=== PATIENT | female | born 1990 | race Caucasian/White ===

== ENCOUNTER 2016-12-07 00:45 | Emergency (ER) | payer OTHER ==
[2016-12-07 01:38] LABS: BILIRUBIN NEGATIVE (NEGATIVE); BLOOD 2+ Ery/uL (NEGATIVE); CLARITY CLEAR (CLEAR); COLOR YELLOW (YELLOW); GLUCOSE (U) NORMAL (NORMAL); KETONE (U) NEGATIVE (NEGATIVE); LEUKOCYTES TRACE Leu/uL (NEGATIVE); NITRITE NEGATIVE (NEGATIVE); PROTEIN NEGATIVE (NEGATIVE); SPECIFIC GRAVITY 1.015 (1.001-1.030); UROBILINOGEN 0.2 mg/dL (0.2-1.0); pH 6.5 (5.0-9.0)
[2016-12-07 01:45] LABS: AMORPHOUS URATES CRYSTALS MODERATE
[2016-12-07 01:58] LABS: BASOPHIL 0.7 % (0-2); EOSINOPHIL 9.9 % (0-5); HCT 42.3 % (37.0-47.0); HGB 14.7 g/dl (12.5-16.0); LYMPHOCYTE 44.7 % (15-48); MCH 30.6 pg (25.0-31.0); MCHC 34.8 g/dL (32.0-36.0); MCV 87.9 fL (78.0-100.0); MPV 9.6 fL (6.0-9.5); NEUTROPHIL 37.7 % (41-80); PLT 223 K/uL (150-400); RBC 4.81 M/uL (4.20-5.40); RDW 12.4 % (11.5-14.0); WBC 5.7 K/uL (4.0-10.5)
[2016-12-07 02:16] LABS: ALBUMIN 4.1 g/dL (3.5-5.0); BILIRUBIN - TOTAL 0.2 mg/dL (0.1-1.0); CREATININE 0.7 mg/dL (0.5-1.0); POTASSIUM 3.9 mmol/L (3.5-5.1); TOTAL PROTEIN 7.1 g/dL (6.4-8.3)
== END 2016-12-07 03:22 | disposition home or self-care (01) ==
LOC: FER 00:45
PROVIDERS: Emergency Medicine
DX: N20.0 Calculus of kidney (principal); F17.210 Nicotine dependence, cigarettes, uncomplicated; Z87.442 Personal history of urinary calculi; Z87.42 Personal history of other diseases of the female genital tract; Z88.2 Allergy status to sulfonamides; Z88.5 Allergy status to narcotic agent; Z88.6 Allergy status to analgesic agent; Z91.040 Latex allergy status; Z90.49 Acquired absence of other specified parts of digestive tract; Z97.8 Presence of other specified devices
CPT/HCPCS: 36415; 80053; 81001; 85025; 87076; 87077; 87088; 87186; J1170; J2405

== ENCOUNTER 2016-12-12 05:39 | Emergency (ER) | payer OTHER ==
[2016-12-12 07:26] LABS: BASOPHIL 0.6 % (0-2); EOSINOPHIL 7.3 % (0-5); HCT 38.8 % (37.0-47.0); HGB 13.4 g/dl (12.5-16.0); LYMPHOCYTE 51.8 % (15-48); MCH 30.9 pg (25.0-31.0); MCHC 34.5 g/dL (32.0-36.0); MCV 89.4 fL (78.0-100.0); MONOCYTE 7.4 % (0-12); NEUTROPHIL 32.9 % (41-80); PLT 212 K/uL (150-400); RBC 4.34 M/uL (4.20-5.40); RDW 12.5 % (11.5-14.0); WBC 6.6 K/uL (4.0-10.5)
[2016-12-12 07:33] LABS: CREATININE 0.6 mg/dL (0.5-1.0); POTASSIUM 4.2 mmol/L (3.5-5.1)
== END 2016-12-12 08:01 | disposition home or self-care (01) ==
LOC: FER 05:39
PROVIDERS: Internal Medicine
DX: N39.0 Urinary tract infection, site not specified (principal); F17.210 Nicotine dependence, cigarettes, uncomplicated; Z88.5 Allergy status to narcotic agent; Z88.2 Allergy status to sulfonamides; Z88.6 Allergy status to analgesic agent; Z91.040 Latex allergy status
CPT/HCPCS: 36415; 80048; 85025; 96372; J1170; J2270; J2405

== ENCOUNTER 2016-12-18 18:53 | Emergency (ER) | payer OTHER ==
[2016-12-18 19:43] LABS: BILIRUBIN NEGATIVE (NEGATIVE); BLOOD 2+ Ery/uL (NEGATIVE); CLARITY CLEAR (CLEAR); COLOR YELLOW (YELLOW); GLUCOSE (U) NORMAL (NORMAL); KETONE (U) NEGATIVE (NEGATIVE); LEUKOCYTES 3+ Leu/uL (NEGATIVE); NITRITE NEGATIVE (NEGATIVE); PROTEIN TRACE (LOW) mg/dL (NEGATIVE); SPECIFIC GRAVITY 1.025 (1.001-1.030); UROBILINOGEN 0.2 mg/dL (0.2-1.0)
[2016-12-18 19:44] LABS: BACTERIA 3+; URINARY WBC 20-50
[2016-12-18 19:52] LABS: BASOPHIL 0.6 % (0-2); EOSINOPHIL 4.4 % (0-5); HCT 40.5 % (37.0-47.0); HGB 14.4 g/dl (12.5-16.0); LYMPHOCYTE 44.9 % (15-48); MCH 30.6 pg (25.0-31.0); MCHC 35.6 g/dL (32.0-36.0); MCV 86.2 fL (78.0-100.0); MONOCYTE 7.4 % (0-12); NEUTROPHIL 42.7 % (41-80); PLT 261 K/uL (150-400); WBC 5.4 K/uL (4.0-10.5)
[2016-12-18 20:15] LABS: ALBUMIN 4.4 g/dL (3.5-5.0); BILIRUBIN - TOTAL 0.4 mg/dL (0.1-1.0); CREATININE 0.7 mg/dL (0.5-1.0); TOTAL PROTEIN 7.4 g/dL (6.4-8.3)
== END 2016-12-18 23:12 | disposition home or self-care (01) ==
LOC: FER 18:53
PROVIDERS: Emergency Medicine Emergency Medical Services
DX: N30.00 Acute cystitis without hematuria (principal); E86.9 Volume depletion, unspecified; F17.210 Nicotine dependence, cigarettes, uncomplicated; Z87.442 Personal history of urinary calculi; Z88.5 Allergy status to narcotic agent; Z88.6 Allergy status to analgesic agent; Z88.2 Allergy status to sulfonamides; Z91.040 Latex allergy status; Z90.49 Acquired absence of other specified parts of digestive tract; Z87.42 Personal history of other diseases of the female genital tract
CPT/HCPCS: 36415; 76830; 80053; 81001; 85025; 87076; 87077; 87088; 87186; J1170; J2405; Q9967

== ENCOUNTER 2021-09-21 20:35 | Emergency (ER) | payer OTHER ==
[~2021-09-21 20:35] MED LIST: NEURONTIN400 MG PO
[2021-09-22] MEDS ORDERED: ZOLOFT100 MG PO (13:27)
[2021-09-22] MEDS ORDERED: FLEXERIL5 MG PO (13:28)
== END 2021-09-22 01:06 | disposition home or self-care (01) ==
LOC: FER 20:35
DX: S52.571A Other intraarticular fracture of lower end of right radius, initial encounter for closed fracture (principal); S52.611A Displaced fracture of right ulna styloid process, initial encounter for closed fracture; F17.290 Nicotine dependence, other tobacco product, uncomplicated; Z88.2 Allergy status to sulfonamides; Z23 Encounter for immunization; Z88.5 Allergy status to narcotic agent; Z91.040 Latex allergy status; V49.40XA Driver injured in collision with unspecified motor vehicles in traffic accident, initial encounter
CPT/HCPCS: 73090; 73110; 90471; 90715; 99152; J2250

== ENCOUNTER → 2021-09-26 | Day surgery (SDC) | payer OTHER ==
[~2021-09-26] VITALS: Ht 165.1 cm; Wt 78.5 kg
[~2021-09-26] MED LIST changes: +FLEXERIL5 MG PO; +ZOLOFT100 MG PO
[2021-09-26 13:24] LABS: HCG (URINE) SCREEN NEGATIVE (NEGATIVE)
[2021-09-26 13:27] LABS: HCT 36.1 % (37.0-47.0); HGB 11.9 g/dl (12.5-16.0); MCH 27.9 pg (25.0-31.0); MCV 84.7 fL (78.0-100.0); MPV 9.3 fL (6.0-9.5); RBC 4.26 M/uL (4.20-5.40); RDW 13.8 % (11.5-14.0)
[2021-09-26 13:49] LABS: ALBUMIN 3.7 g/dL (3.4-5.0); BILIRUBIN - TOTAL 0.3 mg/dL (0.2-1.0); CREATININE 0.63 mg/dL (0.51-0.95); TOTAL PROTEIN 7.7 g/dL (6.4-8.2)
== END | disposition home or self-care (01) ==
LOC: FAS 12:52
PROVIDERS: Orthopaedic Surgery
DX: S52.571A Other intraarticular fracture of lower end of right radius, initial encounter for closed fracture (principal); V89.2XXA Person injured in unspecified motor-vehicle accident, traffic, initial encounter; F43.10 Post-traumatic stress disorder, unspecified; Z87.891 Personal history of nicotine dependence; Z88.2 Allergy status to sulfonamides; Z88.5 Allergy status to narcotic agent; Z88.6 Allergy status to analgesic agent; Z91.040 Latex allergy status
CPT/HCPCS: 36415; 73100; 76000; 80053; 84703; J0690; J1100; J2250; J2704; J2795; J3010; J7120